=== PATIENT | female | born 1960 ===

== ENCOUNTER 2016-12-24 17:41 | Emergency (ER) | payer OTHER, MEDICAID ==
[2016-12-24 17:41] VITALS: BMI 27.1
[2016-12-24 18:08] VITALS: O2SAT 98
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
[2016-12-24 18:42] VITALS: RESP 18
[2016-12-24 20:26] VITALS: BP 127/73; PULSE 67; TEMP 97.9
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
--- NOTE | 2016-12-25 18:06 | CARD ---
APPROVED REPORT EKG Measurement Heart [id number] ID [id number] <Conclusion> Normal sinus rhythm Normal ECG
== END 2016-12-24 21:15 | disposition home or self-care (01) ==
LOC: ED 17:41
DX: R07.0 Pain in throat (principal); R07.81 Pleurodynia
CPT/HCPCS: 70450; 70490; 71020; 82948; 93005; 99284; G0480

== ENCOUNTER 2017-03-26 17:46 | Emergency (ER) | payer MEDICAID, OTHER ==
[2017-03-26 17:54] VITALS: BMI 27.4
[2017-03-26 17:58] VITALS: BP 126/78; PULSE 86; TEMP 98
--- NOTE | 2017-03-26 18:38 | ED PDOC ---
Arrival/HPI - General Chief Complaint: Back Pain Time Seen by Provider: 03/26/17 18:21 Historian: Patient - History of Present Illness Narrative History of Present Illness (Text): 03/26/17 19:10 56 yo F c/o atraumatic L low back pain radiating to the L leg since yesterday, states that the pain is worse with movement, reports taking motrin yesterday with no relief. Denies fever, chills, injury, fall, abdominal pain, urinary symptoms, bowel / bladder incontinence, weakness or numbness. Otherwise has no other complaints. PMYinka Rivas Past Medical History - Provider Review Nursing Documentation Reviewed: Yes - Infectious Disease Hx of Infectious Diseases: None - Tetanus Immunization Tetanus Immunization: Unknown - Reproductive Menopause: Yes - Past Medical History Past Medical History: No Previous - Cardiac Hx Cardiac Disorders: No Hx Angina: No Hx Cardiac Arrhythmia: No Hx Circulatory Problems: No Hx Congestive Heart Failure: No Hx Heart Murmur: No Hx Heart Transplant: No Hx Hypertension: No Hx Internal Defibrillator: No Hx Mitral Valve Prolapse: No Hx Pacemaker: No Hx Peripheral Edema: No Hx Peripheral Vascular Disease: No - Pulmonary Hx Respiratory Disorders: No Hx Asthma: No Hx Bronchitis: No Hx Chronic Obstructive Pulmonary Disease (COPD): No Hx Emphysema: No Hx Pneumonia: No Hx Respiratory Aspiration: No Hx Respiratory Tract Infection: No Hx Sleep Apnea: No Hx Tuberculosis: No Other/Comment: smokes 1/2 pack cigarettes a day - Neurological Hx Neurological Disorder: No Hx Alzheimer's Disease: No HX Cerebrovascular Accident: No Hx Dementia: No Hx Dizziness: No Hx Meningitis: No Hx Migraine: No Hx Parkinson's Disease: No Hx Seizures: No Hx Transient Ischemic Attacks (TIA): No - HEENT Hx HEENT Disorder: No Hx Blind: No Hx Cataracts: No Hx Deafness: No Hx Difficulty Chewing: No Hx Epistaxis: No Hx Glaucoma: No Hx Macular Degeneration: No - Renal Hx Renal Disorder: No Hx Dialysis: No Hx Kidney Stones: No Hx Neurogenic Bladder: No Hx Pyelonephritis: No Hx Renal Cancer: No Hx Renal Failure: No - Endocrine/Metabolic Hx Endocrine Disorders: No Hx Adrenal Cancer: No Hx Diabetes Insipidus: No Hx Diabetes Mellitus Type 1: No Hx Diabetes Mellitus Type 2: No Hx Hyperthyroidism: No Hx Hypothyroidism: No Hx Systemic Lupus Erythematosus: No - Hematological/Oncological Hx Blood Disorders: No Hx AIDS: No Hx Anemia: No Hx Cancer: No Hx Chemotherapy: No Hx Cirrhosis: No Hx Hemophilia: No Hx Hepatitis A: No Hx Hepatitis B: No Hx Hepatitis C: No Hx Metastasis: No Hx Shingles: No Hx Sickle Cell Disease: No Hx Unexplained Bleeding: No - Integumentary Hx Dermatological Disorder: No Hx Basal Cell Carcinoma: No Hx Eczema: Yes - Musculoskeletal/Rheumatological Hx Musculoskeletal Disorders: No Hx Arthritis: No Hx Back Pain: No Hx Degenerative Joint Disease: No Hx Falls: No Hx Fractures: No Hx Gout: No Hx Herniated Disk: No Hx Myasthenia Gravis: No Hx Osteoarthritis: No Hx Osteomyelitis: No Hx Osteoporosis: No Hx Rhabdomyolysis: No Hx Spinal Stenosis: No Hx Unsteady Gait: No - Gastrointestinal Hx Gastrointestinal Disorders: No Hx Colostomy: No Hx Crohn's Disease: No Hx Diverticulitis: No Hx Gall Bladder Disease: No Hx Gastroesophageal Reflux: No Hx Gastrointestinal Ulcer: No Hx Ileostomy: No Hx Liver Failure: No Hx Pancreatitis: Yes HX Swallowing Problems: No - Genitourinary/Gynecological Hx Genitourinary Disorders: No Hx Hematuria: No Hx Incontinence: No Hx Prostate Problems: No Hx Sexually Transmitted Diseases: No Hx Urinary Tract Infection: No Other/Comment: tubal ligation - Psychiatric Hx Psychophysiologic Disorder: No Hx Anxiety: No Hx Bipolar Disorder: No Hx Depression: No Hx Emotional Abuse: No Hx Hallucinations: No Hx Panic Disorder: No Hx Post Traumatic Stress Disorder: No Hx Psychosis: No Hx Physical Abuse: No Hx Schizophrenia: No Hx Sexual Abuse: No Hx Substance Use: No - Surgical History Hx Amputation: No Hx Appendectomy: No Hx Cardiac Catheterization: No Hx Section: Yes Hx Cholecystectomy: No Hx Coronary Stent: No Hx Gastric Bypass Surgery: No Hx Hysterectomy: No Hx Joint Replacement: No Hx Kidney Transplant: No Hx Liver Transplant: No Hx Mastectomy: No Hx Musculoskeletal Surgery: No Hx Open Heart Surgery: No Hx Orthopedic Surgery: No Hx Splenectomy: No Hx Tubal Ligation: Yes Hx Valve Replacement: No - Anesthesia Hx Anesthesia: Yes Hx Anesthesia Reactions: No Hx Malignant Hyperthermia: No - Suicidal Assessment Feels Threatened In Home Enviroment: No Family/Social History - Physician Review Nursing Documentation Reviewed: Yes Family/Social History: No Known Family HX Smoking Status: Current Some Days Smoker Hx Alcohol Use: Yes Frequency of alcohol use: Socially Hx Substance Use: No Hx Substance Use Treatment: No Allergies/Home Meds Allergies/Adverse Reactions: Allergies No Known Allergies Allergy (Verified 03/26/17 17:54) Home Medications: Home Meds Medication Instructions Recorded Confirmed Fenofibrate [Fenofibrate] 40 mg PO DAILY 03/26/17 03/26/17 Review of Systems - Review of Systems Constitutional: Normal. absent: Fatigue, Weight Change, Fevers Respiratory: Normal. absent: SOB, Cough, Sputum Cardiovascular: Normal. absent: Chest Pain, Palpitations, Edema Gastrointestinal: Normal. absent: Abdominal Pain, Stool Changes, Appetite Changes Musculoskeletal: Normal, Back Pain. absent: Arthralgias, Neck Pain Skin: Normal. absent: Rash, Pruritis, Skin Lesions Physical Exam Vital Signs Reviewed: Yes Vital Signs Temp Pulse Resp BP Pulse Ox 03/26/17 18:43 18 99 03/26/17 17:56 98.0 F 86 19 126/78 95 Temperature: Afebrile Blood Pressure: Normal Pulse: Regular Respiratory Rate: Normal Appearance: Positive for: Well-Appearing, Non-Toxic, Comfortable Pain Distress: Other (Pt ambulatory in the ER) Mental Status: Positive for: Alert and Oriented X 3 - Systems Exam Head: Present: Atraumatic, Normocephalic Neck: Present: Normal Range of Motion. No: MIDLINE TENDERNESS Respiratory/Chest: Present: Clear to Auscultation, Good Air Exchange. No: Respiratory Distress, Accessory Muscle Use, Wheezes, Rales, Rhonchi Cardiovascular: Present: Regular Rate and Rhythm, Normal S1, S2. No: Murmurs Abdomen: No: Tenderness, Distention, Rebound, Guarding, Mass/Organomegaly Back: Present: Paraspinal Tenderness (L paralumbar tenderness to palpation with mild spasm). No: Normal Inspection, CVA Tenderness, Midline Tenderness, Pain with Leg Raise Upper Extremity: Present: Normal Inspection, Normal ROM. No: Edema Lower Extremity: Present: Normal Inspection, NORMAL PULSES, Normal ROM. No: Edema Neurological: Present: GCS=15, CN II-XII Intact, Speech Normal, Motor Func Grossly Intact, Normal Sensory Function Skin: Present: Warm, Dry, Normal Color. No: Rashes Psychiatric: Present: Alert, Oriented x 3 Medical Decision Making ED Course and Treatment: 03/26/17 18:34 56 yo F c/o L low back pain radiating to the L leg since yesterday. Based on history and exam, likely sciatica. Pt medicated with toradol IM and flexeril PO. Pt states that she feels comfortable going home, advised to take medication as prescribed and to f/u with pmd, instructed to return to the ER at any time for any new or worsening symptoms. - Medication Orders Current Medication Orders: Discontinued Medications Cyclobenzaprine HCl (Flexeril) 10 mg PO STAT STA Stop: 03/26/17 18:30 Last Admin: 03/26/17 18:39 Dose: 10 mg Ketorolac Tromethamine (Toradol) 60 mg IM STAT STA Stop: 03/26/17 18:30 Last Admin: 03/26/17 18:41 Dose: 60 mg - PA / FLEET COORDINATOR / Resident Statement / has reviewed & agrees with the documentation as recorded. Disposition/Present on Arrival - Present on Arrival Any Indicators Present on Arrival: No History of DVT/PE: No History of Uncontrolled Diabetes: No Urinary Catheter: No History of Decub. Ulcer: No History Surgical Site Infection Following: None - Disposition Have Diagnosis and Disposition been Completed?: Yes Diagnosis: Sciatica Disposition: HOME/ ROUTINE Disposition Time: 18:15 Patient Plan: Discharge Condition: STABLE Discharge Instructions (ExitCare): Sciatica (ED) Print Language: TAJIK Additional Instructions: Follow up with pmd in 1-2 days without fail. Take medication as prescribed. Return to the ER at any time for any new or worsening symptoms. Prescriptions: Cyclobenzaprine [Cyclobenzaprine HCl] 10 mg PO TID PRN #15 tab PRN Reason: Pain, Moderate (4-7) Meloxicam [Mobic] 15 mg PO DAILY PRN #30 tab PRN Reason: Pain, Moderate (4-7) Referrals: Kirsten Rivas DO [Primary Care Provider] - Follow up with primary Forms: WORK NOTE
[2017-03-26 18:43] VITALS: RESP 18; O2SAT 99
== END 2017-03-26 18:43 | disposition home or self-care (01) ==
LOC: ED 17:46
DX: M54.30 Sciatica, unspecified side (principal)
CPT/HCPCS: 96372; 99282; J1885

== ENCOUNTER 2017-12-15 08:47 | Observation (INO) | payer MEDICAID ==
[2017-12-15 09:16] VITALS: BMI 28.5
[2017-12-15] MEDS ORDERED: Sodium Chloride 0.9% 500 ML IV STA (09:31)
[2017-12-15 09:58] LABS: PH,URINE 5.5 (4.7-8.0); URINE BILIRUBIN NEGATIVE (NEGATIVE); URINE BLOOD NEGATIVE (NEGATIVE); URINE GLUCOSE (UA) NEGATIVE (NEGATIVE); URINE LEUKOCYTE ESTERASE NEGATIVE Leu/uL (NEGATIVE); URINE PROTEIN NEGATIVE mg/dL (<30 mg/dL); URINE UROBILINOGEN 0.2 E.U./dL (<1 E.U./dL)
[2017-12-15 10:01] LABS: BASO # 0.05 K/mm3 (0.0-2.0); BASO % 0.5 % (0.0-3.0); EOS # 0.3 (0.0-0.7); EOS % 2.7 % (1.5-5.0); GRAN # 5.81 (1.4-6.5); GRAN % 63.9 % (50.0-68.0); HEMOGLOBIN 14.2 g/dL (12.0-16.0); LYMPH # 2.3 (1.2-3.4); LYMPH % 25.3 % (22.0-35.0); MEAN CELL VOLUME 87.5 fl (80.0-105.0); MEAN CORPUSCULAR HEMOGLOBIN 29.1 pg (25.0-35.0); MEAN CORPUSCULAR HGB CONC 33.3 g/dl (31.0-37.0); MEAN PLATELET VOLUME 9.6 fl (7.0-11.0); MONO # 0.7 (0.1-0.6); MONO % 7.6 % (1.0-6.0); RBC 4.88 10^6/uL (3.5-6.1); WHITE BLOOD COUNT 9.1 10^3/ul (4.5-11.0)
[2017-12-15 10:02] LABS: URINE APPEARANCE CLEAR (CLEAR); URINE COLOR YELLOW (YELLOW)
[2017-12-15 10:13] LABS: INR 1.03 (0.93-1.08); PARTIAL THROMBOPLASTIN TIME 30.3 Seconds (25.1-36.5); PROTHROMBIN TIME 11.9 SECONDS (9.4-12.5)
[2017-12-15 10:14] LABS: ALB/GLOB RATIO 1.3 (1.1-1.8); ALBUMIN 4.4 g/dL (3.0-4.8); ALT/SGPT 60 U/L (7-56); AST/SGOT 34 U/L (14-36); BLOOD UREA NITROGEN 17 mg/dL (7-21); CALCIUM 10.2 mg/dL (8.4-10.5); GFR AFRICAN-AMERICAN > 60; GFR NON-AFRICAN AMERICAN > 60; LIPASE 121 U/L (23-300)
--- NOTE | 2017-12-15 10:17 | ED PDOC ---
Arrival/HPI - General Chief Complaint: Dizziness/Lightheaded Time Seen by Provider: 12/15/17 09:01 Historian: Patient - History of Present Illness Narrative History of Present Illness (Text): 12/15/17 09:46 57yr old female presents today with dizziness and feeling like she is going to pass out. pt states that she was standing at the bus stop and started to feel dizziness. pt states she sat on the bus and was still feeling dizziness and nauseous. pt denies cp or sob. pt denies any trauma or injury. pt states she has been having abdominal pain and diarrhea x 1 week. pt states yesterday she took OTC medication for diarrhea. pt states she only took her cholesterol medication today. Patient denies back pain. Denies neck pain. Patient denies fevers or chills. Patient denies urinary symptoms. Patient denies alcohol or drug use. No other complaints Time/Duration: Prior to Arrival Past Medical History - Provider Review Nursing Documentation Reviewed: Yes - Travel History Have you recently traveled outside [place] w/in the past 3 mons?: No - Infectious Disease Hx of Infectious Diseases: None - Tetanus Immunization Tetanus Immunization: Unknown - Past Medical History Past Medical History: No Previous - Cardiac Hx Cardiac Disorders: Yes Hx Angina: No Hx Cardiac Arrhythmia: No Hx Circulatory Problems: No Hx Congestive Heart Failure: No Hx Heart Murmur: No Hx Heart Transplant: No Hx Hypertension: No Hx Internal Defibrillator: No Hx Mitral Valve Prolapse: No Hx Pacemaker: No Hx Peripheral Edema: No Hx Peripheral Vascular Disease: No - Pulmonary Hx Respiratory Disorders: No Hx Asthma: No Hx Bronchitis: No Hx Chronic Obstructive Pulmonary Disease (COPD): No Hx Emphysema: No Hx Pneumonia: No Hx Respiratory Aspiration: No Hx Respiratory Tract Infection: No Hx Sleep Apnea: No Hx Tuberculosis: No Other/Comment: smokes 1/2 pack cigarettes a day - Neurological Hx Neurological Disorder: No Hx Alzheimer's Disease: No HX Cerebrovascular Accident: No Hx Dementia: No Hx Dizziness: No Hx Meningitis: No Hx Migraine: No Hx Parkinson's Disease: No Hx Seizures: No Hx Transient Ischemic Attacks (TIA): No - HEENT Hx HEENT Disorder: No Hx Blind: No Hx Cataracts: No Hx Deafness: No Hx Difficulty Chewing: No Hx Epistaxis: No Hx Glaucoma: No Hx Macular Degeneration: No - Renal Hx Renal Disorder: No Hx Dialysis: No Hx Kidney Stones: No Hx Neurogenic Bladder: No Hx Pyelonephritis: No Hx Renal Cancer: No Hx Renal Failure: No - Endocrine/Metabolic Hx Endocrine Disorders: No Hx Adrenal Cancer: No Hx Diabetes Insipidus: No Hx Diabetes Mellitus Type 1: No Hx Diabetes Mellitus Type 2: No Hx Hyperthyroidism: No Hx Hypothyroidism: No Hx Systemic Lupus Erythematosus: No - Hematological/Oncological Hx Blood Disorders: No Hx AIDS: No Hx Anemia: No Hx Cancer: No Hx Chemotherapy: No Hx Cirrhosis: No Hx Hemophilia: No Hx Hepatitis A: No Hx Hepatitis B: No Hx Hepatitis C: No Hx Metastasis: No Hx Shingles: No Hx Sickle Cell Disease: No Hx Unexplained Bleeding: No - Integumentary Hx Dermatological Disorder: Yes Hx Basal Cell Carcinoma: No Hx Eczema: Yes - Musculoskeletal/Rheumatological Hx Musculoskeletal Disorders: No Hx Arthritis: No Hx Back Pain: No Hx Degenerative Joint Disease: No Hx Falls: No Hx Fractures: No Hx Gout: No Hx Herniated Disk: No Hx Myasthenia Gravis: No Hx Osteoarthritis: No Hx Osteomyelitis: No Hx Osteoporosis: No Hx Rhabdomyolysis: No Hx Spinal Stenosis: No Hx Unsteady Gait: No - Gastrointestinal Hx Gastrointestinal Disorders: Yes Hx Colostomy: No Hx Crohn's Disease: No Hx Diverticulitis: No Hx Gall Bladder Disease: No Hx Gastroesophageal Reflux: No Hx Gastrointestinal Ulcer: No Hx Ileostomy: No Hx Liver Failure: No Hx Pancreatitis: Yes HX Swallowing Problems: No - Genitourinary/Gynecological Hx Genitourinary Disorders: No Hx Hematuria: No Hx Incontinence: No Hx Prostate Problems: No Hx Sexually Transmitted Diseases: No Hx Urinary Tract Infection: No Other/Comment: tubal ligation - Psychiatric Hx Psychophysiologic Disorder: No Hx Anxiety: No Hx Bipolar Disorder: No Hx Depression: No Hx Emotional Abuse: No Hx Hallucinations: No Hx Panic Disorder: No Hx Post Traumatic Stress Disorder: No Hx Psychosis: No Hx Physical Abuse: No Hx Schizophrenia: No Hx Sexual Abuse: No Hx Substance Use: No - Surgical History Hx Amputation: No Hx Appendectomy: No Hx Cardiac Catheterization: No Hx Section: Yes Hx Cholecystectomy: No Hx Coronary Stent: No Hx Gastric Bypass Surgery: No Hx Hysterectomy: No Hx Joint Replacement: No Hx Kidney Transplant: No Hx Liver Transplant: No Hx Mastectomy: No Hx Musculoskeletal Surgery: No Hx Open Heart Surgery: No Hx Orthopedic Surgery: No Hx Splenectomy: No Hx Tubal Ligation: Yes Hx Valve Replacement: No - Anesthesia Hx Anesthesia: Yes Hx Anesthesia Reactions: No Hx Malignant Hyperthermia: No - Suicidal Assessment Feels Threatened In Home Enviroment: No Family/Social History - Physician Review Nursing Documentation Reviewed: Yes Family/Social History: Unknown Family HX Smoking Status: Current Some Days Smoker Hx Alcohol Use: Yes Hx Substance Use: No Hx Substance Use Treatment: No Allergies/Home Meds Allergies/Adverse Reactions: Allergies No Known Allergies Allergy (Verified 12/15/17 09:25) Home Medications: Home Meds Medication Instructions Recorded Confirmed Fenofibrate [Fenofibrate] 40 mg PO DAILY 03/26/17 12/15/17 Review of Systems - Review of Systems Constitutional: Fatigue. absent: Fevers Eyes: Vision Changes (pt states for a moment her vision felt blurry. now has returned to normal). absent: Photophobia, Eye Pain ENT: absent: Sore Throat, Sinus Congestion Respiratory: absent: SOB, Cough Cardiovascular: absent: Chest Pain, Palpitations Gastrointestinal: Abdominal Pain, Diarrhea, Nausea. absent: Vomiting Genitourinary Female: absent: Dysuria, Frequency, Hematuria Musculoskeletal: absent: Arthralgias, Back Pain, Neck Pain Skin: absent: Rash, Pruritis Neurological: Dizziness. absent: Headache Psychiatric: absent: Anxiety, Depression Physical Exam Vital Signs Reviewed: Yes Vital Signs Temp Pulse Resp BP Pulse Ox 12/15/17 14:09 66 18 155/73 H 100 12/15/17 12:42 65 18 158/79 H 100 12/15/17 11:37 60 18 165/86 H 100 12/15/17 10:50 58 L 18 144/68 100 12/15/17 09:26 97.6 F 63 17 127/65 100 Temperature: Afebrile Blood Pressure: Normal Pulse: Regular Respiratory Rate: Normal Appearance: Positive for: Well-Appearing, Non-Toxic, Comfortable Pain Distress: None Mental Status: Positive for: Alert and Oriented X 3 - Systems Exam Head: Present: Atraumatic Pupils: Present: Pinpoint Extroacular Muscles: Present: EOMI Conjunctiva: Present: Normal Mouth: Present: Moist Mucous Membranes Neck: Present: Normal Range of Motion, Trachea Midline. No: Meningeal Signs Respiratory/Chest: Present: Clear to Auscultation, Good Air Exchange. No: Respiratory Distress, Accessory Muscle Use Cardiovascular: Present: Regular Rate and Rhythm, Normal S1, S2. No: Murmurs Abdomen: Present: Tenderness (+ minimal periumbilical and epigastric tenderness) . No: Distention, Peritoneal Signs, Rebound, Guarding Back: Present: Normal Inspection Upper Extremity: Present: Normal ROM Lower Extremity: Present: Normal ROM Neurological: Present: GCS=15, Speech Normal, Motor Func Grossly Intact, Normal Sensory Function Skin: Present: Warm, Dry, Normal Color. No: Rashes Psychiatric: Present: Alert, Oriented x 3 Medical Decision Making ED Course and Treatment: 12/15/17 10:46 57yr old female with dizziness and near syncope and 1 week hx of abdominal pain with diarrhea cbc wnl cmp wnl trop wnl ekg; normal sinus rhythm at 62 bpm normal axis normal intervals no ST elevations cxr: wnl head ct; FINDINGS: HEMORRHAGE: No intracranial hemorrhage. BRAIN: No mass effect or edema. No atrophy or chronic microvascular ischemic changes. VENTRICLES: Unremarkable. No hydrocephalus. CALVARIUM: Unremarkable. PARANASAL SINUSES: Unremarkable as visualized. No significant inflammatory changes. MASTOID AIR CELLS: Unremarkable as visualized. No inflammatory changes. OTHER FINDINGS: None. IMPRESSION: Normal CT of the Head. abd/pelvis ct: FINDINGS: LOWER THORAX: Unremarkable. LIVER: Unremarkable. No gross lesion or ductal dilatation. GALLBLADDER AND BILE DUCTS: Gallbladder removed PANCREAS: Unremarkable. No gross lesion or ductal dilatation. SPLEEN: Unremarkable. ADRENALS: Unremarkable. No mass. KIDNEYS AND URETERS: Unremarkable. No hydronephrosis. No solid mass. VASCULATURE: Unremarkable. No aortic aneurysm. BOWEL: There is mural thickening in the descending and sigmoid colon with multiple diverticula. Minimal stranding of the fat planes is seen. Findings are consistent with mild diverticulitis APPENDIX: Normal appendix. PERITONEUM: Unremarkable. No free fluid. No free air. LYMPH NODES: Unremarkable. No enlarged lymph nodes. BLADDER: Unremarkable. REPRODUCTIVE: Unremarkable. BONES: No acute fracture. OTHER FINDINGS: None. IMPRESSION: There is mural thickening in the descending and sigmoid colon with multiple diverticula. Minimal stranding of the fat planes is seen. Findings are consistent with mild diverticulitis 12/15/17 13:45 asa given pO pt reassessment; pt feeling better; alert, oriented, no distress. 12/15/17 13:[address] Lucien oconnell; accepts observational status admission for dizziness, near syncope; impression; dizziness, near syncope admit observational status to [facility]. Reassessment Condition: Re-examined, Improved - Lab Interpretations Lab Results: 12/15/17 09:52 12/15/17 09:52 Lab Results 12/15/17 09:52: Urine Opiates Screen Negative, Urine Methadone Screen Negative, Ur Barbiturates Screen Negative, Ur Phencyclidine Scrn Negative, Ur Amphetamines Screen Negative, U Benzodiazepines Scrn Negative, U Oth Cocaine Metabols Negative, U Cannabinoids Screen Negative 12/15/17 09:52: WBC 9.1, RBC 4.88, Hgb 14.2, Hct 42.7, MCV 87.5, MCH 29.1, MCHC 33.3, RDW 14.0, Plt Count 300, MPV 9.6, Gran % 63.9, Lymph % (Auto) 25.3, [place] % (Auto) 7.6 H, Eos % (Auto) 2.7, Baso % (Auto) 0.5, Gran # 5.81, Lymph # (Auto ) 2.3, [place] # (Auto) 0.7 H, Eos # (Auto) 0.3, Baso # (Auto) 0.05 12/15/17 09:52: Sodium 143, Potassium 4.0, Chloride 104, Carbon Dioxide 29, Anion Gap 14, BUN 17, Creatinine 0.7, Est GFR ( Amer) > 60, Est GFR (Non- Af Amer) > 60, Random Glucose 101, Calcium 10.2, Total Bilirubin 0.4, AST 34, ALT 60 H, Alkaline Phosphatase 67, Lactate Dehydrogenase 525, Total Creatine Kinase 174, Troponin I < 0.01, Total Protein 7.9, Albumin 4.4, Globulin 3.4, Albumin/Globulin Ratio 1.3, Lipase 121 12/15/17 09:52: PT 11.9, INR 1.03, APTT 30.3 12/15/17 09:45: Urine Color Yellow, Urine Appearance Clear, Urine pH 5.5, Ur Specific [place] >= 1.030, Urine Protein Negative, Urine Glucose (UA) Negative, Urine Ketones Negative, Urine Blood Negative, Urine Nitrate Negative, Urine Bilirubin Negative, Urine Urobilinogen 0.2, Ur Leukocyte Esterase Negative - RAD Interpretation Radiology Orders: 12/15/17 09:41 HEAD W/O CONTRAST [CT] Stat 12/15/17 10:51 ABD & PELVIS IV CONTRAST ONLY [CT] Stat 12/15/17 13:46 CHEST PORTABLE [RAD] Stat - Medication Orders Current Medication Orders: Discontinued Medications Aspirin (Aspirin) 325 mg PO STAT STA Stop: 12/15/17 13:18 Last Admin: 12/15/17 13:49 Dose: 325 mg Sodium Chloride (Sodium Chloride 0.9%) 500 mls @ 999 mls/hr IV .Q31M STA Stop: 12/15/17 10:01 Last Admin: 12/15/17 09:56 Dose: 999 mls/hr eMAR Start Stop Document 12/15/17 09:56 [email or web address] (Rec: 12/15/17 09:56 [email or web address] [id number]) Intravenous Solution Start Date 12/15/17 Start Time 09:56 End Date 12/15/17 Nicotine (Nicoderm Cq) 1 patch TD STAT STA Stop: 12/15/17 13:18 NIHSS Scale ([place]) Time Performed: 09:25 - How Severe is the Stoke Baseline Level of Consciousness: 0=Alert LOC to Questions: 0=Both comments correct LOC to commands: 0=Obeys both correctly Best Gaze: 0=Normal Visual: 0=No visual loss Facial: 0=Normal Motor Arm - Left: 0=No drift Motor Arm - Right: 0=No drift Motor Leg - Left: 0=No drift Motor Leg - Right: 0=No drift Limb Ataxia: 0=Absent Sensory: 0=Normal Best Language: 0=No aphasia Dysarthia: 0=Normal articulation Extinction & Inattention (Neglect): 0=Normal, no object Score: 0 Risk Level: No Stroke Risk Disposition/Present on Arrival - Present on Arrival Any Indicators Present on Arrival: No History of DVT/PE: No History of Uncontrolled Diabetes: No Urinary Catheter: No History of Decub. Ulcer: No History Surgical Site Infection Following: None - Disposition Have Diagnosis and Disposition been Completed?: Yes Diagnosis: Dizziness, Near syncope Disposition: HOSPITALIZED Disposition Time: 14:00 Patient Plan: Observation Condition: FAIR Forms: Tilt (Bahamian)
[2017-12-15 10:24] LABS: TROPONIN I < 0.01 ng/mL
[2017-12-15 10:29] LABS: BARBITURATES, UR NEGATIVE (NEGATIVE); BENZODIAZEPINES, UR NEGATIVE (NEGATIVE); OPIATES, UR NEGATIVE (NEGATIVE); PHENCYCLIDINE, UR NEGATIVE (NEGATIVE)
--- NOTE | 2017-12-15 10:55 | CT ---
PROCEDURE: CT HEAD WITHOUT CONTRAST. HISTORY: dizziness COMPARISON: None available. TECHNIQUE: Axial computed tomography images were obtained through the head/brain without intravenous contrast. Radiation dose: Total exam DLP = mGy-cm. This CT exam was performed using one or more of the following dose reduction techniques: Automated exposure control, adjustment of the mA and/or kV according to patient size, and/or use of iterative reconstruction technique. FINDINGS: HEMORRHAGE: No intracranial hemorrhage. BRAIN: No mass effect or edema. No atrophy or chronic microvascular ischemic changes. VENTRICLES: Unremarkable. No hydrocephalus. CALVARIUM: Unremarkable. PARANASAL SINUSES: Unremarkable as visualized. No significant inflammatory changes. MASTOID AIR CELLS: Unremarkable as visualized. No inflammatory changes. OTHER FINDINGS: None. IMPRESSION: Normal CT of the Head.
[2017-12-15] MEDS ORDERED: Iohexol 350 MG/100 ML VIAL ONE (11:01)
--- NOTE | 2017-12-15 12:29 | CT ---
PROCEDURE: CT Abdomen and Pelvis with contrast HISTORY: abd pain COMPARISON: None. TECHNIQUE: Contrast dose: 100 cc of Omni 350 Radiation dose: Total exam DLP = 377 mGy-cm. This CT exam was performed using one or more of the following dose reduction techniques: Automated exposure control, adjustment of the mA and/or kV according to patient size, and/or use of iterative reconstruction technique. FINDINGS: LOWER THORAX: Unremarkable. LIVER: Unremarkable. No gross lesion or ductal dilatation. GALLBLADDER AND BILE DUCTS: Unremarkable. PANCREAS: Unremarkable. No gross lesion or ductal dilatation. SPLEEN: Unremarkable. ADRENALS: Unremarkable. No mass. KIDNEYS AND URETERS: Unremarkable. No hydronephrosis. No solid mass. VASCULATURE: Unremarkable. No aortic aneurysm. BOWEL: Unremarkable. No obstruction. No gross mural thickening. APPENDIX: Normal appendix. PERITONEUM: Unremarkable. No free fluid. No free air. LYMPH NODES: Unremarkable. No enlarged lymph nodes. BLADDER: Unremarkable. REPRODUCTIVE: Unremarkable. BONES: No acute fracture. OTHER FINDINGS: None. IMPRESSION: No acute findings
--- NOTE | 2017-12-15 13:55 | CARD ---
APPROVED REPORT EKG Measurement Heart [id number] <Conclusion> Normal sinus rhythm Normal ECG
--- NOTE | 2017-12-15 14:08 | RAD ---
HISTORY: dizziness COMPARISON: 12/24/2016 FINDINGS: LUNGS: No active pulmonary disease. PLEURA: No significant pleural effusion identified, no pneumothorax apparent. CARDIOVASCULAR: Normal. OSSEOUS STRUCTURES: No significant abnormalities. VISUALIZED UPPER ABDOMEN: Normal. OTHER FINDINGS: None. IMPRESSION: No active disease.
--- NOTE | 2017-12-15 14:27 | CP.PCM.HP ---
<Jose Trujillo - Last Filed: 12/15/17 14:06> History of Present Illness - History of Present Illness History of Present Illness: Subjective: CC: Dizziness HPI: Patient is a 57 yr old female with a past medical history of hpl, pancreatitis, ETOH abuse, and skin rash who presents to the ED for evaluation and treatment of dizziness and nausea which began this morning without a speicific provoking event. Denies trauma to the head and loss of consciousness. States she was able to ambulate however felt that she was spinning upon rest. Associated with blurry vision. States the aforementioned symptoms have resolved since being in ED. Also admits to a 6 day history of loose watery bowel movements. Has taken OTC loperamide yesterday which has reduced her frequency of BMs. Denies fever, chills, chest pain, shortness of breath, abdominal pain, vomitting, constipation , and urinary symptoms. PMHx: pancreatitis and ETOH abuse, diffuse skin rash of unknown etiology PSHx: tubal ligation Allergies: NKDA Social Hx: social ETOH use, former ETOH abuse- reduced intake 4 years ago, 1/2 ppd tobacco use for 25+ years, denies illicit drug use Family Hx: denies PMD: Dr. Curiel Pharmacy: [facility] in [place], [place] Physical Examination: - Head Exam Head Exam: ATRAUMATIC, NORMOCEPHALIC - Constitutional Appears: Non-toxic, No Acute Distress - Head Exam Head Exam: ATRAUMATIC, NORMOCEPHALIC - Eye Exam Eye Exam: EOMI - ENT Exam ENT Exam: Mucous Membranes Moist - Neck Exam Neck exam: Positive for: Full Rom - Respiratory Exam Respiratory Exam: CTA bilaterally - Cardiovascular Exam Cardiovascular Exam: +S1, +S2. absent: Systolic Murmur - GI/Abdominal Exam GI & Abdominal Exam: Normal Bowel Sounds, Soft, Non tender to palpation absent : Distended, Firm, Mass, Rebound, Rigid - Extremities Exam Extremities exam: Positive for: normal inspection. Negative for: calf tenderness, pedal edema - Neurological Exam Neurological exam: Alert, Oriented x3, responds to verbal stimuli, answers questions appropriately, follows commands, and moves extremities past midline - Psychiatric Exam Psychiatric exam: Normal Affect, Normal Mood - Skin Skin Exam: chronic diffuse skin rash Assessment and Plan: Patient is a 57 year old female who was admitted for evaluation and treatment of dizziness. Dizziness; Nausea - likely 2/2 dehydration 2/2 diarrhea - CT head- no acute findings - orthostatics - TSH ordered and pending - meclizine prn - zofran prn- EKG reviewed and QTc is WNL - high risk fall precauations - PT ordered- appreciate recommendations Diarrhea - CT abdomen and pelvis- no acute findings - loperamide prn - stool culture - c. diff assay Hx of HPL - lipid profile ordered and pending - A1c ordered and pending - continue home fenofibrate Tobacco Abuse - encouraged smoking cessation, education on danger of smoking/chewing tobacco products provided - nicotine patch offered Patient seen with, case reviewed with, and plan approved by attending physician , Dr. Chaidez. Present on Admission - Present on Admission Any Indicators Present on Admission: No Past Patient History - Infectious Disease Hx of Infectious Diseases: None - Tetanus Immunizations Tetanus Immunization: Unknown - Past Social History Smoking Status: Current Some Days Smoker - CARDIAC Hx Cardiac Disorders: Yes Hx Angina: No Hx Cardia Arrhythmia: No Hx Circulatory Problems: No Hx Congestive Heart Failure: No Hx Heart Murmur: No Hx Heart Transplant: No Hx Hypertension: No Hx Internal Defibrillator: No Hx Mitral Valve Prolapse: No Hx Pacemaker: No Hx Peripheral Edema: No Hx Peripheral Vascular Disease: No - PULMONARY Hx Respiratory Disorders: No Hx Asthma: No Hx Bronchitis: No Hx Chronic Obstructive Pulmonary Disease (COPD): No Hx Emphysema: No Hx Pneumonia: No Hx Respiratory Aspiration: No Hx Respiratory Tract Infection: No Hx Sleep Apnea: No Hx Tuberculosis: No Other/Comment: smokes 1/2 pack cigarettes a day - NEUROLOGICAL Hx Neurological Disorder: No Hx Alzheimer's Disease: No HX Cerebrovascular Accident: No Hx Dementia: No Hx Dizziness: No Hx Meningitis: No Hx Migraine: No Hx Parkinson's Disease: No Hx Seizures: No Hx Transient Ischemic Attacks (TIA): No - HEENT Hx HEENT Problems: No Hx Blind: No Hx Cataracts: No Hx Deafness: No Hx Difficulty Chewing: No Hx Epistaxis: No Hx Glaucoma: No Hx Macular Degeneration: No - RENAL Hx Chronic Kidney Disease: No Hx Dialysis: No Hx Kidney Stones: No Hx Neurogenic Bladder: No Hx Pyelonephritis: No Hx Renal (Kidney) Cancer: No Hx Renal Failure: No - ENDOCRINE/METABOLIC Hx Endocrine Disorders: No Hx Adrenal Cancer: No Hx Diabetes Insipidus: No Hx Diabetes Mellitus Type 1: No Hx Diabetes Mellitus Type 2: No Hx Hyperthyroidism: No Hx Hypothyroidism: No Hx Systemic Lupus Erythematosus: No - HEMATOLOGICAL/ONCOLOGICAL Hx Blood Disorders: No Hx AIDS: No Hx Anemia: No Hx Cancer: No Hx Chemotherapy: No Hx Cirrhosis: No Hx Hemophilia: No Hx Hepatitis A: No Hx Hepatitis B: No Hx Hepatitis C: No Hx Metastesis: No Hx Shingles: No Hx Sickle Cell Disease: No Hx Unexplained Bleeding: No - INTEGUMENTARY Hx Dermatological Problems: Yes Hx Basil Cell: No Hx Eczema: Yes - MUSCULOSKELETAL/RHEUMATOLOGICAL Hx Musculoskeletal Disorders: No Hx Arthritis: No Hx Back Pain: No Hx Degenerative Joint Disease: No Hx Falls: No Hx Fractures: No Hx Gout: No Hx Herniated Disk: No Hx Myasthenia Gravis: No Hx Osteoarthritis: No Hx Osteomyelitis: No Hx Osteoporosis: No Hx Rhabdomyolysis: No Hx Spinal Stenosis: No Hx Unsteady Gait: No - GASTROINTESTINAL Hx Gastrointestinal Disorders: Yes Hx Colostomy: No Hx Crohn's Disease: No Hx Diverticulitis: No Hx Gall Bladder Disease: No Hx Gastroesophageal Reflux: No Hx Ileostomy: No Hx Liver Failure: No Hx Pancreatitis: Yes HX Swallowing Problems: No - GENITOURINARY/GYNECOLOGICAL Hx Genitourinary Disorders: No Hx Hematuria: No Hx Incontinence: No Hx Sexually Transmitted Disorders: No Hx Urinary Tract Infection: No Other/Comment: tubal ligation - PSYCHIATRIC Hx Psychophysiologic Disorder: No Hx Anxiety: No Hx Bipolar Disorder: No Hx Depression: No Hx Emotional Abuse: No Hx Hallucinations: No Hx Panic Symptoms: No Hx Post Traumatic Stress Disorder: No Hx Psychosis: No Hx Physical Abuse: No Hx Schizophrenia: No Hx Sexual Abuse: No Hx Substance Use: No - SURGICAL HISTORY Hx Amputation: No Hx Appendectomy: No Hx Cardiac Catheterization: No Hx Section: Yes Hx Cholecystectomy: No Hx Coronary Stent: No Hx Gastric Bypass Surgery: No Hx Hysterectomy: No Hx Joint Replacement: No Hx Kidney Transplant: No Hx Liver Transplant: No Hx Mastectomy: No Hx Musculoskeletal Surgery: No Hx Open Heart Surgery: No Hx Orthopedic Surgery: No Hx Splenectomy: No Hx Tubal Ligation: Yes Hx Valve Replacement: No - ANESTHESIA Hx Anesthesia: Yes Hx Anesthesia Reactions: No Hx Malignant Hyperthermia: No Meds Allergies/Adverse Reactions: Allergies Allergy/AdvReac Type Severity Reaction Status Date / Time No Known Allergies Allergy Verified 12/15/17 09:25 Results - Vital Signs Recent Vital Signs: Last Vital Signs Temp 97.6 F 12/15/17 09:26 Pulse 65 12/15/17 12:42 Resp 18 12/15/17 12:42 BP 158/79 H 12/15/17 12:42 Pulse Ox 100 12/15/17 12:42 - Labs Result Diagrams: 12/15/17 09:52 12/15/17 09:52 Labs: Laboratory Results - last 24 hr 12/15/17 12/15/17 12/15/17 09:45 09:52 09:52 WBC RBC Hgb Hct MCV MCH MCHC RDW Plt Count MPV Gran % Lymph % (Auto) [place] % (Auto) Eos % (Auto) Baso % (Auto) Gran # Lymph # (Auto) [place] # (Auto) Eos # (Auto) Baso # (Auto) PT 11.9 INR 1.03 APTT 30.3 Sodium 143 Potassium 4.0 Chloride 104 Carbon Dioxide 29 Anion Gap 14 BUN 17 Creatinine 0.7 Est GFR ( Amer) > 60 Est GFR (Non-Af Amer) > 60 Random Glucose 101 Calcium 10.2 Total Bilirubin 0.4 AST 34 ALT 60 H Alkaline Phosphatase 67 Lactate Dehydrogenase 525 Total Creatine Kinase 174 Troponin I < 0.01 Total Protein 7.9 Albumin 4.4 Globulin 3.4 Albumin/Globulin Ratio 1.3 Lipase 121 Urine Color Yellow Urine Appearance Clear Urine pH 5.5 Ur Specific [place] >= 1.030 Urine Protein Negative Urine Glucose (UA) Negative Urine Ketones Negative Urine Blood Negative Urine Nitrate Negative Urine Bilirubin Negative Urine Urobilinogen 0.2 Ur Leukocyte Esterase Negative Urine Opiates Screen Urine Methadone Screen Ur Barbiturates Screen Ur Phencyclidine Scrn Ur Amphetamines Screen U Benzodiazepines Scrn U Oth Cocaine Metabols U Cannabinoids Screen 12/15/17 12/15/17 09:52 09:52 WBC 9.1 RBC 4.88 Hgb 14.2 Hct 42.7 MCV 87.5 MCH 29.1 MCHC 33.3 RDW 14.0 Plt Count 300 MPV 9.6 Gran % 63.9 Lymph % (Auto) 25.3 Spink % (Auto) 7.6 H Eos % (Auto) 2.7 Baso % (Auto) 0.5 Gran # 5.81 Lymph # (Auto) 2.3 Spink # (Auto) 0.7 H Eos # (Auto) 0.3 Baso # (Auto) 0.05 PT INR APTT Sodium Potassium Chloride Carbon Dioxide Anion Gap BUN Creatinine Est GFR ( Amer) Est GFR (Non-Af Amer) Random Glucose Calcium Total Bilirubin AST ALT Alkaline Phosphatase Lactate Dehydrogenase Total Creatine Kinase Troponin I Total Protein Albumin Globulin Albumin/Globulin Ratio Lipase Urine Color Urine Appearance Urine pH Ur Specific [place] Urine Protein Urine Glucose (UA) Urine Ketones Urine Blood Urine Nitrate Urine Bilirubin Urine Urobilinogen Ur Leukocyte Esterase Urine Opiates Screen Negative Urine Methadone Screen Negative Ur Barbiturates Screen Negative Ur Phencyclidine Scrn Negative Ur Amphetamines Screen Negative U Benzodiazepines Scrn Negative U Oth Cocaine Metabols Negative U Cannabinoids Screen Negative <Lucien Chaidez B - Last Filed: 12/16/17 13:32> Results - Vital Signs Recent Vital Signs: Last Vital Signs Temp 97.7 F 12/16/17 08:04 Pulse 87 12/16/17 10:00 Resp 19 12/16/17 08:04 BP 126/63 12/16/17 08:04 Pulse Ox 99 12/16/17 08:04 - Labs Result Diagrams: 12/16/17 06:00 12/16/17 06:00 Labs: Laboratory Results - last 24 hr 12/16/17 12/16/17 06:00 06:00 WBC 6.8 D RBC 4.57 Hgb 13.0 Hct 40.1 MCV 87.7 MCH 28.4 MCHC 32.4 RDW 14.2 Plt Count 291 MPV 9.7 Gran % 43.5 L Lymph % (Auto) 41.3 H Spink % (Auto) 10.1 H Eos % (Auto) 4.4 Baso % (Auto) 0.7 Gran # 2.95 Lymph # (Auto) 2.8 Spink # (Auto) 0.7 H Eos # (Auto) 0.3 Baso # (Auto) 0.05 Sodium 142 Potassium 4.2 Chloride 107 Carbon Dioxide 29 Anion Gap 10 BUN 15 Creatinine 0.7 Est GFR ( Amer) > 60 Est GFR (Non-Af Amer) > 60 Random Glucose 103 Calcium 9.3 Total Bilirubin 0.2 AST 28 ALT 50 Alkaline Phosphatase 45 Total Protein 6.6 Albumin 3.5 Globulin 3.1 Albumin/Globulin Ratio 1.1 Attending/Attestation - Attestation I have personally seen and examined this patient.: Yes I have fully participated in the care of the patient.: Yes I have reviewed all pertinent clinical information: Yes Notes (Text): I have seen and examined the patient at bedside. Agree with the above note with the following additions/ exceptions: Briefly this is 57 year old female with history of dyslipidemia, alcohol abuse, tobacco use, alcohol induced pancreatitis who came today for evaluation of nausea and dizziness which started this morning. Patient has been having watery diarrhea for few days. Patient looks slightly dehydrated. CT head is normal. Will order orthostatics, TSH, meclizine prn and PT eval. Will send stool for culture, cdiff. Patient does not have any abdominal tenderness. CT abdomen and pelvis normal. Diarrhea can be due to gastroenteritis. No sick contacts or recent travel. Counselling provided regarding tobacco and alcohol use. Upon discharge patient will follow up with Dr Rivas. Dr Lucien Chaidez
[2017-12-15 15:28] LABS: HDL CHOLESTEROL 42 mg/dL (29-60)
[2017-12-15 15:39] LABS: LDL CHOLESTEROL 128 mg/dL (0-129)
[2017-12-15] MEDS: Lactated Ringer's 1,000 ML IV SCH (15:58)
[2017-12-15] MEDS ORDERED: Pneumococcal 23-Valent Vaccine IM ONE (17:26)
[2017-12-16] MEDS: Lactated Ringer's 1,000 ML IV SCH (04:49)
[2017-12-16 07:16] LABS: ALB/GLOB RATIO 1.1 (1.1-1.8); ALBUMIN 3.5 g/dL (3.0-4.8); ALT/SGPT 50 U/L (7-56); AST/SGOT 28 U/L (14-36); BLOOD UREA NITROGEN 15 mg/dL (7-21); CALCIUM 9.3 mg/dL (8.4-10.5); GFR AFRICAN-AMERICAN > 60; GFR NON-AFRICAN AMERICAN > 60
[2017-12-16 07:41] LABS: BASO # 0.05 K/mm3 (0.0-2.0); BASO % 0.7 % (0.0-3.0); EOS # 0.3 (0.0-0.7); EOS % 4.4 % (1.5-5.0); GRAN # 2.95 (1.4-6.5); GRAN % 43.5 % (50.0-68.0); LYMPH # 2.8 (1.2-3.4); LYMPH % 41.3 % (22.0-35.0); MEAN CELL VOLUME 87.7 fl (80.0-105.0); MEAN CORPUSCULAR HEMOGLOBIN 28.4 pg (25.0-35.0); MEAN CORPUSCULAR HGB CONC 32.4 g/dl (31.0-37.0); MEAN PLATELET VOLUME 9.7 fl (7.0-11.0); MONO # 0.7 (0.1-0.6); MONO % 10.1 % (1.0-6.0); RBC 4.57 10^6/uL (3.5-6.1); RED CELL DISTRIBUTION WIDTH 14.2 % (11.5-14.5); WHITE BLOOD COUNT 6.8 10^3/ul (4.5-11.0)
[2017-12-16 08:05] VITALS: BP 126/63; RESP 19; TEMP 97.7; O2SAT 99
--- NOTE | 2017-12-16 08:29 | CP.PCM.DIS ---
<Jose Trujillo - Last Filed: 12/16/17 10:27> Provider - Provider Date of Admission: 12/15/17 14:08 Attending physician: Lucien Chaidez MD Time Spent in preparation of Discharge (in minutes): 45 Diagnosis - Discharge Diagnosis (1) Dizziness Status: Resolved Priority: Medium (2) Diarrhea Status: Resolved Priority: Medium (3) Hyperlipemia Status: Chronic Priority: Medium (4) Skin rash Status: Chronic Priority: Medium Hospital Course - Lab Results Lab Results: Most Recent Lab Values WBC 6.8 10^3/ul (4.5-11.0) D 12/16/17 06:00 RBC 4.57 10^6/uL (3.5-6.1) 12/16/17 06:00 Hgb 13.0 g/dL (12.0-16.0) 12/16/17 06:00 Hct 40.1 % (36.0-48.0) 12/16/17 06:00 MCV 87.7 fl (80.0-105.0) 12/16/17 06:00 MCH 28.4 pg (25.0-35.0) 12/16/17 06:00 MCHC 32.4 g/dl (31.0-37.0) 12/16/17 06:00 RDW 14.2 % (11.5-14.5) 12/16/17 06:00 Plt Count 291 10^3/uL (120.0-450.0) 12/16/17 06:00 MPV 9.7 fl (7.0-11.0) 12/16/17 06:00 Gran % 43.5 % (50.0-68.0) L 12/16/17 06:00 Lymph % (Auto) 41.3 % (22.0-35.0) H 12/16/17 06:00 Dunn % (Auto) 10.1 % (1.0-6.0) H 12/16/17 06:00 Eos % (Auto) 4.4 % (1.5-5.0) 12/16/17 06:00 Baso % (Auto) 0.7 % (0.0-3.0) 12/16/17 06:00 Gran # 2.95 (1.4-6.5) 12/16/17 06:00 Lymph # (Auto) 2.8 (1.2-3.4) 12/16/17 06:00 Dunn # (Auto) 0.7 (0.1-0.6) H 12/16/17 06:00 Eos # (Auto) 0.3 (0.0-0.7) 12/16/17 06:00 Baso # (Auto) 0.05 K/mm3 (0.0-2.0) 12/16/17 06:00 PT 11.9 SECONDS (9.4-12.5) 12/15/17 09:52 INR 1.03 (0.93-1.08) 12/15/17 09:52 APTT 30.3 Seconds (25.1-36.5) 12/15/17 09:52 Sodium 142 mmol/L (132-148) 12/16/17 06:00 Potassium 4.2 mmol/L (3.6-5.0) 12/16/17 06:00 Chloride 107 mmol/L (98-107) 12/16/17 06:00 Carbon Dioxide 29 mmol/L (21-33) 12/16/17 06:00 Anion Gap 10 (10-20) 12/16/17 06:00 BUN 15 mg/dL (7-21) 12/16/17 06:00 Creatinine 0.7 mg/dl (0.7-1.2) 12/16/17 06:00 Est GFR ( Amer) > 60 12/16/17 06:00 Est GFR (Non-Af Amer) > 60 12/16/17 06:00 POC Glucose (mg/dL) 106 mg/dL (65-110) 12/15/17 09:00 Random Glucose 103 mg/dL (70-110) 12/16/17 06:00 Hemoglobin A1c 6.2 % (4.2-6.5) 12/15/17 09:52 Calcium 9.3 mg/dL (8.4-10.5) 12/16/17 06:00 Total Bilirubin 0.2 mg/dL (0.2-1.3) 12/16/17 06:00 AST 28 U/L (14-36) 12/16/17 06:00 ALT 50 U/L (7-56) 12/16/17 06:00 Alkaline Phosphatase 45 U/L (38-126) 12/16/17 06:00 Lactate Dehydrogenase 525 U/L (333-699) 12/15/17 09:52 Total Creatine Kinase 174 U/L (35-230) 12/15/17 09:52 Troponin I < 0.01 ng/mL 12/15/17 09:52 Total Protein 6.6 g/dL (5.8-8.3) 12/16/17 06:00 Albumin 3.5 g/dL (3.0-4.8) 12/16/17 06:00 Globulin 3.1 gm/dL 12/16/17 06:00 Albumin/Globulin Ratio 1.1 (1.1-1.8) 12/16/17 06:00 Triglycerides 139 mg/dL (35-160) 12/15/17 09:52 Cholesterol 199 mg/dL (130-200) 12/15/17 09:52 LDL Cholesterol Direct 128 mg/dL (0-129) 12/15/17 09:52 HDL Cholesterol 42 mg/dL (29-60) 12/15/17 09:52 Lipase 121 U/L (23-300) 12/15/17 09:52 TSH 3rd Generation 1.53 mIU/mL (0.46-4.68) 12/15/17 09:52 Urine Color Yellow (YELLOW) 12/15/17 09:45 Urine Appearance Clear (CLEAR) 12/15/17 09:45 Urine pH 5.5 (4.7-8.0) 12/15/17 09:45 Ur Specific [place] >= 1.030 (1.005-1.035) 12/15/17 09:45 Urine Protein Negative mg/dL (<30 mg/dL) 12/15/17 09:45 Urine Glucose (UA) Negative mg/dL (NEGATIVE) 12/15/17 09:45 Urine Ketones Negative mg/dL (NEGATIVE) 12/15/17 09:45 Urine Blood Negative (NEGATIVE) 12/15/17 09:45 Urine Nitrate Negative (NEGATIVE) 12/15/17 09:45 Urine Bilirubin Negative (NEGATIVE) 12/15/17 09:45 Urine Urobilinogen 0.2 E.U./dL (<1 E.U./dL) 12/15/17 09:45 Ur Leukocyte Esterase Negative Violet/uL (NEGATIVE) 12/15/17 09:45 Urine Opiates Screen Negative (NEGATIVE) 12/15/17 09:52 Urine Methadone Screen Negative (NEGATIVE) 12/15/17 09:52 Ur Barbiturates Screen Negative (NEGATIVE) 12/15/17 09:52 Ur Phencyclidine Scrn Negative (NEGATIVE) 12/15/17 09:52 Ur Amphetamines Screen Negative (NEGATIVE) 12/15/17 09:52 U Benzodiazepines Scrn Negative (NEGATIVE) 12/15/17 09:52 U Oth Cocaine Metabols Negative (NEGATIVE) 12/15/17 09:52 U Cannabinoids Screen Negative (NEGATIVE) 12/15/17 09:52 - Hospital Course Hospital Course: Patient is a 57 yr old female with a past medical history of hpl, pancreatitis, ETOH abuse, and skin rash who was admitted for evaluation and treatment of dizziness. With the use of physical examinations, lab work, and imaging the patient was diagnosed with and treated for dizziness secondary to dehydration secondary to diarrhea, along with the patients chronic medical conditions. During their hospital stay the patient underwent CT head and abdomen/ plevis which were reviewed, appreciated, and utilized in the management of the patients clinical course. Both the CT head and CT of abdomen/pelvis showed no acute findings. Patient was treated with intravenous fluids amongst other empiric/therapeutic medications. At this time the patient is medically stable for discharge. Patient understands and appreciates discharge plan. Patient instructed to follow up with primary care physicians within three to five days from discharge. Furthermore, the patient is instructed to take medications as prescribed and to return to emergency room for evaluation of intractable headache, fever, chills, dizziness , chest pain, shortness of breath, abdominal pain, nausea, vomiting, diarrhea, constipation, and urinary symptoms. This is a brief summary of the patients hospital course. Please see patient chart for full details. Discharge Exam - Additional Findings Additional findings: - Head Exam Head Exam: ATRAUMATIC, NORMOCEPHALIC - Constitutional Appears: Non-toxic, No Acute Distress - Head Exam Head Exam: ATRAUMATIC, NORMOCEPHALIC - Eye Exam Eye Exam: EOMI - ENT Exam ENT Exam: Mucous Membranes Moist - Neck Exam Neck exam: Positive for: Full Rom - Respiratory Exam Respiratory Exam: CTA bilaterally - Cardiovascular Exam Cardiovascular Exam: +S1, +S2. absent: Systolic Murmur - GI/Abdominal Exam GI & Abdominal Exam: Normal Bowel Sounds, Soft, Non tender to palpation absent : Distended, Firm, Mass, Rebound, Rigid - Extremities Exam Extremities exam: Positive for: normal inspection. Negative for: calf tenderness, pedal edema - Neurological Exam Neurological exam: Alert, Oriented x3, responds to verbal stimuli, answers questions appropriately, follows commands, and moves extremities past midline - Psychiatric Exam Psychiatric exam: Normal Affect, Normal Mood - Skin Skin Exam: chronic diffuse skin rash Discharge Plan - Follow Up Plan Condition: GOOD Disposition: HOME/ ROUTINE Patient education suggested?: Yes Instructions: Dizziness, Nonvertigo, (DC) Additional Instructions: Patient Instructions: Take medications as prescribed. Follow up with PMD within three to five days from discharge. Return to the emergency room for evaluation of intractable headache, fever, chills, dizziness, chest pain, shortness of breath, abdominal pain, nausea, vomiting, diarrhea, constipation, and urinary symptoms. Referrals: Kirsten Rivas DO [Family Provider] - 7 Days <Lucien Chaidez - Last Filed: 12/16/17 14:26> Provider - Provider Date of Admission: 12/15/17 14:08 Attending physician: Lucien Chaidez MD Hospital Course - Lab Results Lab Results: Most Recent Lab Values WBC 6.8 10^3/ul (4.5-11.0) D 12/16/17 06:00 RBC 4.57 10^6/uL (3.5-6.1) 12/16/17 06:00 Hgb 13.0 g/dL (12.0-16.0) 12/16/17 06:00 Hct 40.1 % (36.0-48.0) 12/16/17 06:00 MCV 87.7 fl (80.0-105.0) 12/16/17 06:00 MCH 28.4 pg (25.0-35.0) 12/16/17 06:00 MCHC 32.4 g/dl (31.0-37.0) 12/16/17 06:00 RDW 14.2 % (11.5-14.5) 12/16/17 06:00 Plt Count 291 10^3/uL (120.0-450.0) 12/16/17 06:00 MPV 9.7 fl (7.0-11.0) 12/16/17 06:00 Gran % 43.5 % (50.0-68.0) L 12/16/17 06:00 Lymph % (Auto) 41.3 % (22.0-35.0) H 12/16/17 06:00 Dunn % (Auto) 10.1 % (1.0-6.0) H 12/16/17 06:00 Eos % (Auto) 4.4 % (1.5-5.0) 12/16/17 06:00 Baso % (Auto) 0.7 % (0.0-3.0) 12/16/17 06:00 Gran # 2.95 (1.4-6.5) 12/16/17 06:00 Lymph # (Auto) 2.8 (1.2-3.4) 12/16/17 06:00 Dunn # (Auto) 0.7 (0.1-0.6) H 12/16/17 06:00 Eos # (Auto) 0.3 (0.0-0.7) 12/16/17 06:00 Baso # (Auto) 0.05 K/mm3 (0.0-2.0) 12/16/17 06:00 PT 11.9 SECONDS (9.4-12.5) 12/15/17 09:52 INR 1.03 (0.93-1.08) 12/15/17 09:52 APTT 30.3 Seconds (25.1-36.5) 12/15/17 09:52 Sodium 142 mmol/L (132-148) 12/16/17 06:00 Potassium 4.2 mmol/L (3.6-5.0) 12/16/17 06:00 Chloride 107 mmol/L (98-107) 12/16/17 06:00 Carbon Dioxide 29 mmol/L (21-33) 12/16/17 06:00 Anion Gap 10 (10-20) 12/16/17 06:00 BUN 15 mg/dL (7-21) 12/16/17 06:00 Creatinine 0.7 mg/dl (0.7-1.2) 12/16/17 06:00 Est GFR ( Amer) > 60 12/16/17 06:00 Est GFR (Non-Af Amer) > 60 12/16/17 06:00 POC Glucose (mg/dL) 106 mg/dL (65-110) 12/15/17 09:00 Random Glucose 103 mg/dL (70-110) 12/16/17 06:00 Hemoglobin A1c 6.2 % (4.2-6.5) 12/15/17 09:52 Calcium 9.3 mg/dL (8.4-10.5) 12/16/17 06:00 Total Bilirubin 0.2 mg/dL (0.2-1.3) 12/16/17 06:00 AST 28 U/L (14-36) 12/16/17 06:00 ALT 50 U/L (7-56) 12/16/17 06:00 Alkaline Phosphatase 45 U/L (38-126) 12/16/17 06:00 Lactate Dehydrogenase 525 U/L (333-699) 12/15/17 09:52 Total Creatine Kinase 174 U/L (35-230) 12/15/17 09:52 Troponin I < 0.01 ng/mL 12/15/17 09:52 Total Protein 6.6 g/dL (5.8-8.3) 12/16/17 06:00 Albumin 3.5 g/dL (3.0-4.8) 12/16/17 06:00 Globulin 3.1 gm/dL 12/16/17 06:00 Albumin/Globulin Ratio 1.1 (1.1-1.8) 12/16/17 06:00 Triglycerides 139 mg/dL (35-160) 12/15/17 09:52 Cholesterol 199 mg/dL (130-200) 12/15/17 09:52 LDL Cholesterol Direct 128 mg/dL (0-129) 12/15/17 09:52 HDL Cholesterol 42 mg/dL (29-60) 12/15/17 09:52 Lipase 121 U/L (23-300) 12/15/17 09:52 TSH 3rd Generation 1.53 mIU/mL (0.46-4.68) 12/15/17 09:52 Urine Color Yellow (YELLOW) 12/15/17 09:45 Urine Appearance Clear (CLEAR) 12/15/17 09:45 Urine pH 5.5 (4.7-8.0) 12/15/17 09:45 Ur Specific [place] >= 1.030 (1.005-1.035) 12/15/17 09:45 Urine Protein Negative mg/dL (<30 mg/dL) 12/15/17 09:45 Urine Glucose (UA) Negative mg/dL (NEGATIVE) 12/15/17 09:45 Urine Ketones Negative mg/dL (NEGATIVE) 12/15/17 09:45 Urine Blood Negative (NEGATIVE) 04 09:45 Urine Nitrate Negative (NEGATIVE) 12/15/17 09:45 Urine Bilirubin Negative (NEGATIVE) 12/15/17 09:45 Urine Urobilinogen 0.2 E.U./dL (<1 E.U./dL) 04 09:45 Ur Leukocyte Esterase Negative Violet/uL (NEGATIVE) 12/15/17 09:45 Urine Opiates Screen Negative (NEGATIVE) 12/15/17 09:52 Urine Methadone Screen Negative (NEGATIVE) 12/15/17 09:52 Ur Barbiturates Screen Negative (NEGATIVE) 12/15/17 09:52 Ur Phencyclidine Scrn Negative (NEGATIVE) 12/15/17 09:52 Ur Amphetamines Screen Negative (NEGATIVE) 12/15/17 09:52 U Benzodiazepines Scrn Negative (NEGATIVE) 12/15/17 09:52 U Oth Cocaine Metabols Negative (NEGATIVE) 12/15/17 09:52 U Cannabinoids Screen Negative (NEGATIVE) 12/15/17 09:52 Attending/Attestation - Attestation I have personally seen and examined this patient.: Yes I have fully participated in the care of the patient.: Yes I have reviewed all pertinent clinical information, including history, physical exam and plan: Yes Notes (Text): I have seen and examined the patient at bedside. Agree with the above note with the following additions/ exceptions: Briefly this is 57 year old female with history of dyslipidemia, alcohol abuse, tobacco use, alcohol induced pancreatitis who was admitted yesterday for evaluation of nausea, dizziness and diarrhea which has improved. She had dehydration upon admission which has resolved. Patient did not have any BM since admission therefore stool ample was not even sent. Patient is able to tolerate the diet. She is able to walk in the hallway without any assistance. Dizziness has completely resolved. She did not even require meclizine. CT head is normal. Patient does not have any abdominal tenderness. CT abdomen and pelvis normal. Diarrhea was probably due to gastroenteritis. No sick contacts or recent travel. Counselling provided regarding tobacco and alcohol use. Upon discharge patient will follow up with Dr Rivas. Dr Lucien Chaidez
[2017-12-16] MEDS ORDERED: FENOFIBRATE 40 MG PO SCH (10:00)
[2017-12-16 12:35] VITALS: PULSE 87
== END 2017-12-16 12:40 | disposition home or self-care (01) ==
LOC: ED 08:47 → ERH 14:08 → 3RSO 15:05
PROVIDERS: ADMIT Hospitalist; ATTEND Hospitalist
DX: R55 Syncope and collapse (principal); R19.7 Diarrhea, unspecified; R42 Dizziness and giddiness; E78.5 Hyperlipidemia, unspecified; R21 Rash and other nonspecific skin eruption; E86.0 Dehydration; F17.210 Nicotine dependence, cigarettes, uncomplicated; Z98.51 Tubal ligation status
CPT/HCPCS: 36415; 70450; 71045; 74177; 80053; 80061; 80324; 80345; 80346; 80349; 80353; 80358; 80361; 81003; 82550; 82948; 83036; 83615; 83690; 83992; 84443; 84484; 85025; 85610; 85730; 93005; 99285; G0378; J7040; J7120; Q9967

== ENCOUNTER 2018-10-12 09:58 | Emergency (ER) | payer MEDICAID, OTHER ==
[2018-10-12 09:59] VITALS: BMI 28.5
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
[2018-10-12] MEDS: Albuterol-Ipratrop 3 mg / 0.5 (3 ml) UD IH SCH ×3 (10:44→11:13)
[2018-10-12 10:53] LABS: ARTERIAL BLOOD GAS HCO3 23.5 mmol/L (21-28); ARTERIAL BLOOD GAS HEMOGLOBIN 14.9 g/dL (11.7-17.4); ARTERIAL BLOOD GAS O2 CONTENT 19.7 ML/dl (15-23); ARTERIAL BLOOD GAS O2 SAT 98.7 % (95-98); ARTERIAL BLOOD GAS PCO2 37 mm/Hg (35-45); ARTERIAL BLOOD GAS PH 7.41 (7.35-7.45); ARTERIAL BLOOD GAS TCO2 24.6 mmol.L (22-28)
--- NOTE | 2018-10-12 11:14 | RAD ---
Date of service: 10/12/2018 HISTORY: cough COMPARISON: 12/15/2017 FINDINGS: LUNGS: No active pulmonary disease. PLEURA: No significant pleural effusion identified, no pneumothorax apparent. CARDIOVASCULAR: No aortic atherosclerotic calcification present. Normal cardiac size. No pulmonary vascular congestion. OSSEOUS STRUCTURES: No significant abnormalities. VISUALIZED UPPER ABDOMEN: Normal. OTHER FINDINGS: None. IMPRESSION: No active disease.
[2018-10-12 11:53] VITALS: TEMP 98.2
[2018-10-12 12:02] VITALS: BP 127/90; PULSE 90; RESP 20; O2SAT 98
== END 2018-10-12 12:03 | disposition home or self-care (01) ==
LOC: ED 09:58
DX: R05 Cough (principal); E78.5 Hyperlipidemia, unspecified

== ENCOUNTER 2018-11-24 14:23 | Emergency (ER) | payer MEDICAID ==
[2018-11-24 14:25] VITALS: BMI 28.5
[2018-11-24 14:51] VITALS: BP 114/71; PULSE 70; RESP 18; TEMP 98.4; O2SAT 98
[2018-11-24] MEDS ORDERED: Lidocaine 5% Patch TD ONE (15:56)
--- NOTE | 2018-11-24 16:06 | ED PDOC ---
Arrival/HPI - General Chief Complaint: Upper Extremity Problem/Injury Historian: Patient - History of Present Illness Narrative History of Present Illness (Text): 11/24/18 16:06 58 y/o female with past medical history of hyperlipidemia, post menopausal, and pancreatitis, who presents to the emergency department complaining of right arm pain radiating from the shoulder to her hand since 3 weeks. Patient also states unable to raise her right arm above the head secondary to pain. Patient states tingling in third digit of her right hand due to previous diagnosis of Raynaud's syndrome and pain in her left thumb. Patient denies any fevers, chills, chest pain, shortness of breath, abdominal pain, nausea, vomiting, diarrhea, back pain, neck pain, urinary symptoms, headache, dizziness, or any other complaints. Patient denies any recent trauma or injury. Time/Duration: > week (3 weeks ) Symptom Onset: Gradual Symptom Course: Unchanged Activities at Onset: Light Context: Home Past Medical History - Provider Review Nursing Documentation Reviewed: Yes - Infectious Disease Hx of Infectious Diseases: None - Tetanus Immunization Tetanus Immunization: Unknown - Reproductive Menopause: Yes - Past Medical History Past Medical History: No Previous - Cardiac Hx Cardiac Disorders: No - Pulmonary Hx Respiratory Disorders: No Hx Asthma: No Hx Bronchitis: No Hx Chronic Obstructive Pulmonary Disease (COPD): No Hx Emphysema: No Hx Pneumonia: No Hx Respiratory Aspiration: No Hx Respiratory Tract Infection: No Hx Sleep Apnea: No Hx Tuberculosis: No Other/Comment: smokes 1/2 pack cigarettes a day - Neurological Hx Neurological Disorder: No Hx Alzheimer's Disease: No HX Cerebrovascular Accident: No Hx Dementia: No Hx Dizziness: No Hx Meningitis: No Hx Migraine: No Hx Parkinson's Disease: No Hx Seizures: No Hx Transient Ischemic Attacks (TIA): No - HEENT Hx HEENT Disorder: No Hx Blind: No Hx Cataracts: No Hx Deafness: No Hx Difficulty Chewing: No Hx Epistaxis: No Hx Glaucoma: No Hx Macular Degeneration: No - Renal Hx Renal Disorder: No Hx Dialysis: No Hx Kidney Stones: No Hx Neurogenic Bladder: No Hx Pyelonephritis: No Hx Renal Cancer: No Hx Renal Failure: No - Endocrine/Metabolic Hx Endocrine Disorders: No Hx Adrenal Cancer: No Hx Diabetes Insipidus: No Hx Diabetes Mellitus Type 1: No Hx Diabetes Mellitus Type 2: No Hx Hyperthyroidism: No Hx Hypothyroidism: No Hx Systemic Lupus Erythematosus: No - Hematological/Oncological Hx Blood Disorders: No Hx AIDS: No Hx Anemia: No Hx Cancer: No Hx Chemotherapy: No Hx Cirrhosis: No Hx Hemophilia: No Hx Hepatitis A: No Hx Hepatitis B: No Hx Hepatitis C: No Hx Metastasis: No Hx Shingles: No Hx Sickle Cell Disease: No Hx Unexplained Bleeding: No - Integumentary Hx Dermatological Disorder: No - Musculoskeletal/Rheumatological Hx Musculoskeletal Disorders: No Hx Arthritis: No Hx Back Pain: No Hx Degenerative Joint Disease: No Hx Falls: No Hx Fractures: No Hx Gout: No Hx Herniated Disk: No Hx Myasthenia Gravis: No Hx Osteoarthritis: No Hx Osteomyelitis: No Hx Osteoporosis: No Hx Rhabdomyolysis: No Hx Spinal Stenosis: No Hx Unsteady Gait: No - Gastrointestinal Hx Gastrointestinal Disorders: No - Genitourinary/Gynecological Hx Genitourinary Disorders: No Hx Hematuria: No Hx Incontinence: No Hx Prostate Problems: No Hx Sexually Transmitted Diseases: No Hx Urinary Tract Infection: No Other/Comment: tubal ligation - Psychiatric Hx Psychophysiologic Disorder: No Hx Anxiety: No Hx Bipolar Disorder: No Hx Depression: No Hx Emotional Abuse: No Hx Hallucinations: No Hx Panic Disorder: No Hx Post Traumatic Stress Disorder: No Hx Psychosis: No Hx Physical Abuse: No Hx Schizophrenia: No Hx Sexual Abuse: No Hx Substance Use: No - Surgical History Hx Amputation: No Hx Appendectomy: No Hx Cardiac Catheterization: No Hx Section: Yes Hx Cholecystectomy: No Hx Coronary Stent: No Hx Gastric Bypass Surgery: No Hx Hysterectomy: No Hx Joint Replacement: No Hx Kidney Transplant: No Hx Liver Transplant: No Hx Mastectomy: No Hx Musculoskeletal Surgery: No Hx Open Heart Surgery: No Hx Orthopedic Surgery: No Hx Splenectomy: No Hx Tubal Ligation: Yes Hx Valve Replacement: No - Anesthesia Hx Anesthesia: Yes Hx Anesthesia Reactions: No Hx Malignant Hyperthermia: No - Suicidal Assessment Feels Threatened In Home Enviroment: No Family/Social History - Physician Review Nursing Documentation Reviewed: Yes Family/Social History: Unknown Family HX Smoking Status: Current Some Days Smoker Hx Alcohol Use: Yes Hx Substance Use: No Hx Substance Use Treatment: No Allergies/Home Meds Allergies/Adverse Reactions: Allergies No Known Allergies Allergy (Verified 12/15/17 09:25) Home Medications: Home Meds Medication Instructions Recorded Confirmed Fenofibrate 40 mg PO DAILY 07/19/17 04/09/18 Review of Systems - Physician Review All systems were reviewed & negative as marked: Yes - Review of Systems Constitutional: absent: Fatigue, Weight Change, Fevers Eyes: absent: Vision Changes Respiratory: absent: SOB, Cough, Wheezing Cardiovascular: absent: Chest Pain, Edema Gastrointestinal: absent: Abdominal Pain Musculoskeletal: Other (Pain in the left thumb and right arm pain. ). absent: Back Pain, Neck Pain Skin: absent: Rash, Skin Lesions Neurological: absent: Headache, Dizziness, Speech Changes Psychiatric: absent: Anxiety, Depression, Suicidal Ideation Physical Exam Vital Signs Reviewed: Yes Vital Signs Temp Pulse Resp BP Pulse Ox 11/24/18 14:47 98.4 F 70 18 114/71 98 Temperature: Afebrile Blood Pressure: Normal Pulse: Regular Respiratory Rate: Normal Appearance: Positive for: Well-Appearing Pain Distress: None Mental Status: Positive for: Alert and Oriented X 3 - Systems Exam Head: Present: Atraumatic, Normocephalic Pupils: Present: PERRL Extroacular Muscles: Present: EOMI Conjunctiva: Present: Normal Mouth: Present: Moist Mucous Membranes Neck: Present: Normal Range of Motion Respiratory/Chest: Present: Clear to Auscultation, Good Air Exchange. No: Respiratory Distress, Accessory Muscle Use Cardiovascular: Present: Regular Rate and Rhythm, Normal S1, S2. No: Murmurs Upper Extremity: Present: Tenderness (Tenderness to palpation right shoulder.), Other (Sensation intact bilaterally. Patient is not able to make an OK sign in the left hand. ). No: Cyanosis, Edema, Normal ROM (Unabale to raise arm above head more than 90 degrees.) Lower Extremity: Present: Normal Inspection. No: Edema Neurological: Present: GCS=15, Speech Normal Skin: Present: Warm, Dry, Normal Color. No: Rashes Psychiatric: Present: Alert, Oriented x 3, Normal Insight, Normal Concentration Medical Decision Making ED Course and Treatment: 11/24/18 16:31 Impression: 58 y/o female who presents to the emergency department complaining of right arm pain and left thumb pain. Differential Diagnosis included but are not limited to: Plan: -- Ketorolac --Lidocaine --diaZEpam -- Radiology of left hand and right arm -- Reassess and disposition Prior Visits: Notes and results from previous visits were reviewed. Progress Notes: - RAD Interpretation Radiology Orders: 11/24/18 15:53 HAND LEFT 3 VIEWS ROUTINE [RAD] Stat SHOULDER RIGHT [RAD] Stat - Medication Orders Current Medication Orders: Discontinued Medications Diazepam (Valium) 5 mg PO ONCE ONE; Protocol Stop: 11/24/18 15:54 Ketorolac Tromethamine (Toradol) 60 mg IM STAT STA Stop: 11/24/18 15:54 Lidocaine (Lidoderm) 1 ea TD ONCE ONE Stop: 11/24/18 15:57 - Scribe Statement The provider has reviewed the documentation as recorded by the Scribe Elif gillis training [facility] All medical record entries made by the Scribe were at my direction and personally dictated by me. I have reviewed the chart and agree that the record accurately reflects my personal performance of the history, physical exam, medical decision making, and the department course for this patient. I have also personally directed, reviewed, and agree with the discharge instructions and disposition. Disposition/Present on Arrival - Present on Arrival Any Indicators Present on Arrival: No History of DVT/PE: No History of Uncontrolled Diabetes: No Urinary Catheter: No History of Decub. Ulcer: No History Surgical Site Infection Following: None - Disposition Have Diagnosis and Disposition been Completed?: Yes Diagnosis: Shoulder pain, Thumb pain, Raynaud phenomenon Disposition: HOME/ ROUTINE Disposition Time: 17:24 Patient Plan: Discharge Condition: IMPROVED Discharge Instructions (ExitCare): Shoulder Pain (DC), Muscle and Bone Pain (DC), Raynaud Disease Print Language: SETSWANA Additional Instructions: All medical record entries made by the Scribe were at my direction and personally dictated by me. I have reviewed the chart and agree that the record accurately reflects my personal performance of the history, physical exam, medical decision making, and the department course for this patient. I have also personally directed, reviewed, and agree with the discharge instructions and disposition. Please follow up with your PCP in 1 week Please try to schedule a follow up appointment with the orthopedic surgeon Take your medication as prescribed. Prescriptions: Cyclobenzaprine [Cyclobenzaprine HCl] 10 mg PO PRN PRN #10 tab PRN Reason: Muscle Spasm Lidocaine 5% [Lidoderm] 1 ea TD Q12 #5 patch Naproxen 500 mg PO Q6H #12 tablet Referrals: Ang Shaffer III, MD [Medical Doctor] - Follow up with primary Brody Garcia MD [Medical Doctor] - Follow up with primary Forms: WORK NOTE, [email or web address] (Latvian)
--- NOTE | 2018-11-24 17:05 | RAD ---
PROCEDURE: Left Hand Radiographs. HISTORY: hand pain COMPARISON: None. FINDINGS: BONES: There is periarticular bone demineralization. There is no acute displaced fracture or bone destruction. Bone alignment is normal. JOINTS: Normal. No osteoarthritic changes. SOFT TISSUES: Normal. OTHER FINDINGS: None. IMPRESSION: No acute displaced fracture or dislocation.
--- NOTE | 2018-11-24 17:09 | RAD ---
Date of service: 11/24/2018 PROCEDURE: Radiographs of the Right Shoulder HISTORY: shoulder pain COMPARISON: No prior. FINDINGS: BONES: Normal. No fracture. JOINTS: There is mild degenerative osteoarthrosis in the acromioclavicular joint. There is mild degenerative osteoarthrosis in the glenohumeral joint. There is loss of subacromion space. There is an apparent faint curvilinear calcification superior to the greater tuberosity of the humerus. SOFT TISSUES: Normal. OTHER FINDINGS: None. IMPRESSION: No acute fracture or dislocation. Mild degenerative osteoarthrosis in the acromioclavicular and glenohumeral joints. Loss of subacromion space and faint curvilinear calcification superior to the greater tuberosity of the humerus could be related to chronic rotator tear cuff tear/injury and calcific tendinitis.
== END 2018-11-24 17:41 | disposition home or self-care (01) ==
LOC: ED 14:23
DX: M25.511 Pain in right shoulder (principal); M79.645 Pain in left finger(s); I73.00 Raynaud's syndrome without gangrene
CPT/HCPCS: 73030; 73130; 96372; 99284; J1885